=== PATIENT | female | born 1995 | race Two or more races ===

== ENCOUNTER 2020-06-07 14:40 | Observation (INO) | payer MEDICAID ==
[~2020-06-07] VITALS: Ht 167.6 cm; Wt 88.0 kg
[2020-06-07] MEDS ORDERED: LACTATED RINGERS 1,000 ML IV SCH (15:30)
[2020-06-07 15:57] LABS: BASOPHILS % 0.6 % (0.0-2.0); EOSINOPHILS % 2.7 % (0.0-5.0); HEMATOCRIT. 33.5 % (36.0-48.0); HEMOGLOBIN. 11.5 g/dL (12.0-16.0); LYMPHOCYTES % 20.5 % (20.0-50.0); MEAN CORPUSCULAR HEMOGLOBIN 32.2 pg (28.0-32.0); MEAN CORPUSCULAR VOLUME 94.2 fL (81.0-99.0); MONOCYTES % 7.7 % (2.0-8.0); NEUTROPHILS % 68.5 % (40.0-76.0); PLATELET 215 x1000/uL (130-400); RED BLOOD CELL COUNT 3.56 mill/uL (4.2-5.4); RED CELL DISTRIBUTION WIDTH 13.6 % (11.6-14.6)
[2020-06-07 15:58] LABS: COLOR URINE YELLOW (YELLOW); KETONES URINE NEGATIVE (NEGATIVE); LEUKOCYTE ESTERASE URINE NEGATIVE (NEGATIVE); NITRITE URINE NEGATIVE (NEGATIVE); OCCULT BLOOD URINE NEGATIVE (NEGATIVE); PH URINE 6.5 (4.5-8.0); PROTEIN URINE NEGATIVE (NEGATIVE); SPECIFIC GRAVITY URINE 1.005 (1.005-1.030); UROBILINOGEN URINE 0.2 E.U./dL (0.2-1.0)
[2020-06-07 16:02] LABS: CHLORIDE 110 mEq/L (98-107)
[2020-06-07 16:10] LABS: CLARITY URINE CLEAR (CLEAR)
[2020-06-07] MEDS ORDERED: ACETAMINOPHEN 500MG TABLET PO NR (17:00)
== END 2020-06-07 17:15 | disposition home or self-care (01) ==
LOC: 8 EST LDRP 14:40
PROVIDERS: ADMIT Obstetrics & Gynecology; ATTEND Obstetrics & Gynecology
DX: O26.892 Other specified pregnancy related conditions, second trimester (principal); R10.30 Lower abdominal pain, unspecified; Z3A.21 21 weeks gestation of pregnancy
CPT/HCPCS: 36415; 59025; 76805; 80048; 81003; 85025; G0378; 99281

== ENCOUNTER 2020-10-08 16:40 | Inpatient (IN) | payer MEDICAID ==
[~2020-10-08] VITALS: Ht 160 cm; Wt 95.7 kg
[2020-10-08] MEDS ORDERED: NALOXONE HCL 0.4 MG/ML 1ML VIAL IM PRN (17:00)
[2020-10-08] MEDS ORDERED: BUTORPHANOL TARTRATE 2 MG/ML VIAL IV PRN (17:00)
[2020-10-08] MEDS ORDERED: LIDOCAINE HCL 1% 20ML VIAL (Pyxis) INJ INFIL SCH (17:00)
[2020-10-08] MEDS ORDERED: CARBOPROST TROMETHAMINE 250 MCG/ML AMPUL IM PRN (17:00)
[2020-10-08] MEDS ORDERED: METHYLERGONOVINE MALEATE 0.2 MG/ML IM PRN (17:00)
[2020-10-08] MEDS ORDERED: DEXT 5%/LR + PITOCIN 20UNITS/L 1,000 ML IV SCH (17:00)
[2020-10-08] MEDS ORDERED: MISOPROSTOL 100MCG TABLET VG SCH (17:00)
[2020-10-08] MEDS ORDERED: LACTATED RINGERS 1,000 ML IV SCH (17:00)
[2020-10-08] MEDS ORDERED: MISOPROSTOL 100MCG TABLET VG PRN (17:00)
[2020-10-08] MEDS ORDERED: DIPHENHYDRAMINE 25MG CAPSULE PO NR (18:15)
[2020-10-08 18:24] LABS: CLARITY URINE CLEAR (CLEAR); COLOR URINE YELLOW (YELLOW); KETONES URINE 1+ (NEGATIVE); LEUKOCYTE ESTERASE URINE TRACE (NEGATIVE); NITRITE URINE NEGATIVE (NEGATIVE); OCCULT BLOOD URINE 2+ (NEGATIVE); PH URINE 7.5 (4.5-8.0); PROTEIN URINE TRACE (NEGATIVE); SPECIFIC GRAVITY URINE 1.014 (1.005-1.030); UROBILINOGEN URINE 0.2 E.U./dL (0.2-1.0)
[2020-10-08 18:35] LABS: *BENZODIAZEPINES SCREEN URINE NEGATIVE (NEGATIVE); *COCAINE SCREEN URINE NEGATIVE (NEGATIVE); METHADONE URINE SCREEN NEGATIVE (NEGATIVE); OPIATES URINE SCREEN NEGATIVE (NEGATIVE)
[2020-10-08 18:36] LABS: *AMPHETAMINES SCREEN URINE NEGATIVE (NEGATIVE); *BARBITURATES SCREEN URINE NEGATIVE (NEGATIVE); BASOPHILS % 0.7 % (0.0-2.0); CANNABINOID URINE SCREEN NEGATIVE (NEGATIVE); EOSINOPHILS % 0.7 % (0.0-5.0); HEMATOCRIT. 35.7 % (36.0-48.0); HEMOGLOBIN. 11.7 g/dL (12.0-16.0); LYMPHOCYTES % 16.8 % (20.0-50.0); MEAN CORPUSCULAR HEMOGLOBIN 30.5 pg (28.0-32.0); MEAN CORPUSCULAR VOLUME 92.8 fL (81.0-99.0); MEAN PLATELET VOLUME 10.1 fl (7.4-10.4); MONOCYTES % 5.2 % (2.0-8.0); NEUTROPHILS % 76.6 % (40.0-76.0); PHENCYCLIDINE URINE SCREEN NEGATIVE (NEGATIVE); PLATELET 242 x1000/uL (130-400); RED BLOOD CELL COUNT 3.85 mill/uL (4.2-5.4)
[2020-10-08 18:39] LABS: INR 0.9; PARTIAL THROMBOPLASTIN TIME 28.8 sec (23.4-31.0)
[2020-10-08 22:14] LABS: HEPATITIS B SURFACE ANTIGEN NEGATIVE
[2020-10-09] MEDS ORDERED: MAGNESIUM 20 G PREMIX (L & D) 500 ML IV SCH ×2 (02:30→05:30)
[2020-10-09] MEDS ORDERED: MAGNESIUM 4 G PREMIX 100 ML IV ONE (02:30)
[2020-10-09] MEDS ORDERED: LABETALOL 5MG/ML SYR 20 MG/4 ML SYRINGE IV ONE (02:45)
[2020-10-09] MEDS ORDERED: LABETALOL 5MG/ML SYR 20 MG/4 ML SYRINGE IV SCH (03:00)
[2020-10-09] MEDS ORDERED: FENTANYL CITRATE/PF 50MCG/ML 2ML VIAL ONE ×2 (04:03→05:00)
[2020-10-09] MEDS ORDERED: NEOSTIGMINE METHYLSULFATE 1MG/ML 10 ML VIAL ONE (04:04)
[2020-10-09] MEDS ORDERED: ROCURONIUM BROMIDE 10MG/ML VIAL 5ML IV ONE (04:04)
[2020-10-09] MEDS ORDERED: PROPOFOL 200MG/20ML VIAL IV ONE (04:06)
[2020-10-09] MEDS ORDERED: MIDAZOLAM HCL 2 MG/2 ML VIAL ONE (04:20)
[2020-10-09] MEDS ORDERED: GLYCOPYRROLATE 0.2 MG/ML 2ML VIAL ONE (04:33)
[2020-10-09] MEDS ORDERED: CEFAZOLIN SODIUM 1000MG/VIAL ONE (04:45)
[2020-10-09] MEDS ORDERED: SODIUM CHLORIDE 0.9% 10ML VIAL ONE (04:45)
[2020-10-09] MEDS ORDERED: OXYTOCIN 10 UNITS/ML 1ML ONE (04:46)
[2020-10-09] MEDS ORDERED: SUCCINYLCHOLINE CHLORIDE 200MG/10ML IV ONE (04:46)
[2020-10-09] MEDS ORDERED: DEXAMETHASONE 4MG/ML 1ML VIAL ONE (04:46)
[2020-10-09] MEDS ORDERED: LANOLIN OINT 7GM TUBE TOP PRN (05:30)
[2020-10-09] MEDS ORDERED: HEMORRHOIDAL SUPP PR PRN (05:30)
[2020-10-09] MEDS ORDERED: BISACODYL 10MG SUPP PR PRN (05:30)
[2020-10-09] MEDS ORDERED: ACETAMINOPHEN WITH CODEINE 300/30MG TABLET PO PRN (05:30)
[2020-10-09] MEDS ORDERED: IBUPROFEN 400MG TABLET PO PRN (05:30)
[2020-10-09] MEDS ORDERED: IBUPROFEN 800MG TABLET PO PRN (05:30)
[2020-10-09] MEDS ORDERED: DIPHENHYDRAMINE 25MG CAPSULE PO PRN (05:30)
[2020-10-09] MEDS ORDERED: ONDANSETRON HCL 4MG/2ML INJ IV PRN ×2 (05:30→05:45)
[2020-10-09] MEDS ORDERED: MEPERIDINE HCL/PF 25MG/ML CPJ IV PRN (05:45)
[2020-10-09] MEDS ORDERED: LABETALOL 5MG/ML SYR 20 MG/4 ML SYRINGE IV PRN (05:45)
[2020-10-09] MEDS ORDERED: KETOROLAC 30MG/ML VIAL IV PRN (05:45)
[2020-10-09] MEDS ORDERED: HYDROMORPHONE HCL/PF 2MG/ML CPJ IV PRN (05:45)
[2020-10-09] MEDS ORDERED: DIPHENHYDRAMINE 50MG/ML VIAL IV PRN (05:45)
[2020-10-09] MEDS ORDERED: BUTORPHANOL TARTRATE 2 MG/ML VIAL IM PRN (05:45)
[2020-10-09] MEDS ORDERED: DEXT 5%/LACTATED RINGERS 1,000 ML IV SCH (06:00)
[2020-10-09] MEDS ORDERED: HYDROMORPHONE PCA 50 ML IV PRN (06:00)
[2020-10-09] MEDS: DEXT 5%/LR + PITOCIN 20UNITS/L 1,000 ML IV SCH ×2 (07:16→18:16)
[2020-10-09 07:50] VITALS: BP 138/83
[2020-10-09 08:15] VITALS: BP 117/66
[2020-10-09 09:00] VITALS: BP 114/66
[2020-10-09] MEDS: PRENATAL VIT/FE FUMARATE/FA TABLET PO SCH (09:00)
[2020-10-09] MEDS: CEFAZOLIN 2,000 MG in DEXT 5% WATER 100 ML IV SCH ×2 (13:48→22:05)
[2020-10-09 14:57] VITALS: BP 130/90
[2020-10-09] MEDS: SIMETHICONE 80MG TABLET CHEW PO SCH (16:41)
[2020-10-09 20:00] VITALS: BP 135/80
[2020-10-09] MEDS ORDERED: DOCUSATE SODIUM 100MG CAPSULE PO SCH (21:00)
[2020-10-09 22:09] LABS: BASOPHILS % 0.4 % (0.0-2.0); EOSINOPHILS % 0.4 % (0.0-5.0); HEMATOCRIT. 32.8 % (36.0-48.0); HEMOGLOBIN. 10.8 g/dL (12.0-16.0); LYMPHOCYTES % 15.7 % (20.0-50.0); MEAN CORPUSCULAR HEMOGLOBIN 30.5 pg (28.0-32.0); MEAN CORPUSCULAR VOLUME 92.5 fL (81.0-99.0); MEAN PLATELET VOLUME 9.3 fl (7.4-10.4); MONOCYTES % 7.1 % (2.0-8.0); NEUTROPHILS % 76.4 % (40.0-76.0); PLATELET 237 x1000/uL (130-400); RED BLOOD CELL COUNT 3.54 mill/uL (4.2-5.4)
[2020-10-10] VITALS: BP 131/79
[2020-10-10 04:00] VITALS: BP 125/68
[2020-10-10] MEDS: CEFAZOLIN 2,000 MG in DEXT 5% WATER 100 ML IV SCH (05:44)
[2020-10-10 08:00] VITALS: BP 121/76
[2020-10-10] MEDS: FERROUS SULFATE 325MG TABLET PO SCH ×3 (09:32→18:11)
[2020-10-10] MEDS: SIMETHICONE 80MG TABLET CHEW PO SCH ×4 (09:32→20:54)
[2020-10-10] MEDS: PRENATAL VIT/FE FUMARATE/FA TABLET PO SCH (09:32)
[2020-10-10 10:09] LABS: BASOPHILS % 0.4 % (0.0-2.0); EOSINOPHILS % 1.3 % (0.0-5.0); HEMATOCRIT. 29.9 % (36.0-48.0); HEMOGLOBIN. 10.1 g/dL (12.0-16.0); LYMPHOCYTES % 14.5 % (20.0-50.0); MEAN CORPUSCULAR HEMOGLOBIN 31.3 pg (28.0-32.0); MEAN CORPUSCULAR VOLUME 92.8 fL (81.0-99.0); MEAN PLATELET VOLUME 9.4 fl (7.4-10.4); MONOCYTES % 6.3 % (2.0-8.0); NEUTROPHILS % 77.5 % (40.0-76.0); PLATELET 223 x1000/uL (130-400); RED BLOOD CELL COUNT 3.22 mill/uL (4.2-5.4)
[2020-10-10 16:00] VITALS: BP 127/75
[2020-10-10 20:00] VITALS: BP 115/76
[2020-10-11] MEDS: GUAIFENESIN-DM 200MG-20MG/10ML UDC PO PRN ×3 (00:07→09:04)
[2020-10-11 04:00] VITALS: BP 108/61
[2020-10-11 07:30] VITALS: BP 122/81
[2020-10-11] MEDS: SIMETHICONE 80MG TABLET CHEW PO SCH (08:00)
[2020-10-11] MEDS: PRENATAL VIT/FE FUMARATE/FA TABLET PO SCH (09:03)
[2020-10-11] MEDS: FERROUS SULFATE 325MG TABLET PO SCH (09:03)
== END 2020-10-11 14:00 | disposition home or self-care (01) | DRG 540 ==
LOC: 8 EST LDRP 16:40 → OBSVTOIN 16:40 → 8 EST LDRP 16:54 → 8EST 10-09 07:48
PROVIDERS: ADMIT Obstetrics & Gynecology; ATTEND Obstetrics & Gynecology
PROC: 10D00Z1 Extraction of Products of Conception, Low, Open Approach (ICD-10-PCS; principal; 2020-10-09)
DX: O69.0XX0 Labor and delivery complicated by prolapse of cord, not applicable or unspecified (principal); O26.62 Liver and biliary tract disorders in childbirth; K83.1 Obstruction of bile duct; O14.94 Unspecified pre-eclampsia, complicating childbirth; O32.1XX0 Maternal care for breech presentation, not applicable or unspecified; Z20.828 Contact with and (suspected) exposure to other viral communicable diseases; O69.81X0 Labor and delivery complicated by cord around neck, without compression, not applicable or unspecified; O13.4 Gestational [pregnancy-induced] hypertension without significant proteinuria, complicating childbirth; Z3A.38 38 weeks gestation of pregnancy; Z37.0 Single live birth
CPT/HCPCS: 36415; 80076; 80305; 81003; 83735; 85025; 86592; 86703; 86762; 86850; 86900; 87340; 88307; J0330; J0595; J0690; J1100; J1170; J2250; J2590; J2704; J2710; J3010; J3475; J3490; J7060; J7121; U0003

== ENCOUNTER 2022-05-20 09:20 | Inpatient (IN) | payer MEDICAID, MEDICARE ==
[~2022-05-20] VITALS: Ht 167.6 cm; Wt 106.6 kg
[2022-05-20] MEDS ORDERED: PREN1TAB23 PO (09:59)
[2022-05-20] MEDS ORDERED: CARBOPROST TROMETHAMINE 250 MCG/ML AMPUL IM PRN (10:45)
[2022-05-20] MEDS ORDERED: METHYLERGONOVINE MALEATE 0.2 MG/ML IM PRN (10:45)
[2022-05-20] MEDS ORDERED: NALOXONE HCL 0.4 MG/ML 1ML VIAL IM PRN (10:45)
[2022-05-20] MEDS: LACTATED RINGERS 1,000 ML IV SCH ×2 (10:53→11:38)
[2022-05-20 10:58] LABS: BASOPHILS % 0.5 % (0.0-2.0); HEMATOCRIT. 34.5 % (36.0-48.0); HEMOGLOBIN. 11.7 g/dL (12.0-16.0); LYMPHOCYTES % 17.6 % (20.0-50.0); MEAN CORPUSCULAR HEMOGLOBIN 30.8 pg (28.0-32.0); MEAN CORPUSCULAR VOLUME 90.9 fL (81.0-99.0); NEUTROPHILS % 74.9 % (40.0-76.0); PLATELET 233 x1000/uL (130-400); RED CELL DISTRIBUTION WIDTH 14.8 % (11.6-14.6)
[2022-05-20 11:08] LABS: INR 0.9; PARTIAL THROMBOPLASTIN TIME 29.8 sec (23.4-31.0)
[2022-05-20 11:15] LABS: CLARITY URINE CLEAR (CLEAR); COLOR URINE YELLOW (YELLOW); KETONES URINE NEGATIVE (NEGATIVE); LEUKOCYTE ESTERASE URINE NEGATIVE (NEGATIVE); NITRITE URINE NEGATIVE (NEGATIVE); OCCULT BLOOD URINE NEGATIVE (NEGATIVE); PH URINE 7.5 (4.5-8.0); PROTEIN URINE NEGATIVE (NEGATIVE); SPECIFIC GRAVITY URINE 1.012 (1.005-1.030); UROBILINOGEN URINE 0.2 E.U./dL (0.2-1.0)
[2022-05-20 11:35] LABS: *AMPHETAMINES SCREEN URINE NEGATIVE (NEGATIVE); *BARBITURATES SCREEN URINE NEGATIVE (NEGATIVE); *BENZODIAZEPINES SCREEN URINE NEGATIVE (NEGATIVE); *COCAINE SCREEN URINE NEGATIVE (NEGATIVE); CANNABINOID URINE SCREEN NEGATIVE (NEGATIVE); METHADONE URINE SCREEN NEGATIVE (NEGATIVE); OPIATES URINE SCREEN NEGATIVE (NEGATIVE); PHENCYCLIDINE URINE SCREEN NEGATIVE (NEGATIVE)
[2022-05-20 13:36] LABS: HEPATITIS B SURFACE ANTIGEN NEGATIVE
[2022-05-20] MEDS ORDERED: MORPHINE SULFATE/PF 1MG/ML 10ML AMP ONE (14:25)
[2022-05-20] MEDS ORDERED: DEXAMETHASONE 4MG/ML 1ML VIAL ONE (14:36)
[2022-05-20] MEDS ORDERED: ONDANSETRON HCL 4MG/2ML INJ ONE (14:36)
[2022-05-20] MEDS ORDERED: EPHEDRINE SULFATE 50MG/ML VIAL ONE (14:36)
[2022-05-20] MEDS ORDERED: KETOROLAC 60MG/2ML VIAL IM ONE (14:36)
[2022-05-20] MEDS ORDERED: CEFAZOLIN SODIUM 1000MG/VIAL ONE (14:36)
[2022-05-20] MEDS ORDERED: PROPOFOL 200MG/20ML VIAL IV ONE (15:20)
[2022-05-20] MEDS ORDERED: KETOROLAC 30MG/ML VIAL IV PRN (15:30)
[2022-05-20] MEDS ORDERED: MORPHINE SULFATE 4 MG/ML CPJ (NOT FOR IM USE) IV PRN (15:30)
[2022-05-20] MEDS ORDERED: FENTANYL CITRATE/PF 50MCG/ML 2ML VIAL IV PRN (15:30)
[2022-05-20] MEDS ORDERED: NALOXONE HCL 0.4 MG/ML 1ML VIAL IV PRN (15:30)
[2022-05-20] MEDS ORDERED: FENTANYL CITRATE/PF 50MCG/ML 2ML VIAL ONE (15:35)
[2022-05-20] MEDS ORDERED: IBUPROFEN 400MG TABLET PO PRN (16:45)
[2022-05-20] MEDS ORDERED: LANOLIN OINT 7GM TUBE TOP PRN (16:45)
[2022-05-20] MEDS ORDERED: ONDANSETRON HCL 4MG/2ML INJ IV PRN (16:45)
[2022-05-20] MEDS ORDERED: MEPERIDINE HCL/PF 25MG/ML CPJ IV NR (16:45)
[2022-05-20] MEDS ORDERED: RHO(D) IMMUNE GLOBULIN 300 MCG/SYR IM PRN (16:45)
[2022-05-20] MEDS ORDERED: BISACODYL 10MG SUPP PR PRN (16:45)
[2022-05-20] MEDS ORDERED: HYDROCODONE/ACETAMINOPHEN 5/325MG TABLET PO PRN ×2 (16:45)
[2022-05-20] MEDS ORDERED: DIPHENHYDRAMINE 25MG CAPSULE PO PRN (16:45)
[2022-05-20] MEDS: OXYTOCIN 30 UNITS/500ML NS PMX 500 ML IV SCH ×2 (19:07→22:11)
[2022-05-20 20:15] VITALS: BP 127/70
[2022-05-21] VITALS: BP 124/61
[2022-05-21] MEDS: OXYTOCIN 30 UNITS/500ML NS PMX 500 ML IV SCH (00:06)
[2022-05-21 04:00] VITALS: BP 125/65
[2022-05-21] MEDS: LACTATED RINGERS 1,000 ML IV SCH (04:12)
[2022-05-21 07:11] LABS: BASOPHILS % 0.2 % (0.0-2.0); EOSINOPHILS % 0.4 % (0.0-5.0); HEMATOCRIT. 31.7 % (36.0-48.0); HEMOGLOBIN. 10.7 g/dL (12.0-16.0); LYMPHOCYTES % 16.8 % (20.0-50.0); MEAN CORPUSCULAR HEMOGLOBIN 30.6 pg (28.0-32.0); MEAN PLATELET VOLUME 9.9 fl (7.4-10.4); NEUTROPHILS % 74.6 % (40.0-76.0); PLATELET 208 x1000/uL (130-400); RED BLOOD CELL COUNT 3.49 mill/uL (4.2-5.4); RED CELL DISTRIBUTION WIDTH 14.7 % (11.6-14.6)
[2022-05-21 08:00] VITALS: BP 114/68
[2022-05-21] MEDS ORDERED: PRENATAL VIT/FE FUMARATE/FA TABLET PO SCH (09:00)
[2022-05-21 16:00] VITALS: BP 112/70
[2022-05-21 20:00] VITALS: BP 121/83
[2022-05-22 04:00] VITALS: BP 130/66
[2022-05-22 07:35] VITALS: BP 126/72
[2022-05-22 16:00] VITALS: BP 130/67
[2022-05-22 20:00] VITALS: BP 132/84
[2022-05-23 04:02] VITALS: BP 131/78
[2022-05-23 07:45] VITALS: BP 132/68
== END 2022-05-23 11:25 | disposition home or self-care (01) | DRG 539 ==
LOC: OBSVTOIN 09:20 → 8 EST LDRP 09:20 → 8EST 20:15
PROVIDERS: ADMIT Obstetrics & Gynecology; ATTEND Obstetrics & Gynecology
PROC: 10D00Z1 Extraction of Products of Conception, Low, Open Approach (ICD-10-PCS; principal; 2022-05-20)
PROC: 0UB70ZZ Excision of Bilateral Fallopian Tubes, Open Approach (ICD-10-PCS; 2022-05-20)
DX: O34.211 Maternal care for low transverse scar from previous cesarean delivery (principal); D62 Acute posthemorrhagic anemia; Z20.822 Contact with and (suspected) exposure to COVID-19; Z37.0 Single live birth; O90.81 Anemia of the puerperium; Z3A.39 39 weeks gestation of pregnancy; Z30.2 Encounter for sterilization
CPT/HCPCS: 36415; 80305; 81003; 85025; 86592; 86703; 86762; 86850; 86900; 87340; 87426; 88302; 88307; 99281; G0378; J0690; J1100; J1885; J2274; J2405; J2704; J3010; J3490; J7120; J2590